=== PATIENT | male | born 1990 | race Caucasian/White ===

== ENCOUNTER → 2017-11-12 | Outpatient (CLI) | payer OTHER | END | disposition home or self-care (01) | LOC: KCIC CT 10:48 | DX: N20.2 Calculus of kidney with calculus of ureter (principal); M43.06 Spondylolysis, lumbar region; I87.8 Other specified disorders of veins; N13.39 Other hydronephrosis; N13.8 Other obstructive and reflux uropathy | CPT/HCPCS: 74176 ==